=== PATIENT | male | born 2000 | race Two or more races ===

== ENCOUNTER 2022-03-28 13:04 | Emergency (ER) | payer MEDICAID, OTHER ==
[~2022-03-28] VITALS: Ht 167.6 cm; Wt 65.9 kg
[2022-03-28] MEDS ORDERED: FLUORESCEIN SOD OPTH TEST STRIP RIGHTEYE ONE (14:45)
[2022-03-28] MEDS ORDERED: TETRACAINE HCL 0.5% OPTH(EYE) SOLN 4ML RIGHTEYE ONE (14:45)
[2022-03-28] MEDS ORDERED: TOBR0.3S37 OP (15:02)
[2022-03-28 15:07] VITALS: BP 132/72
== END 2022-03-28 15:07 | disposition home or self-care (01) ==
LOC: ER 13:04
DX: S05.01XA Injury of conjunctiva and corneal abrasion without foreign body, right eye, initial encounter (principal); Z90.49 Acquired absence of other specified parts of digestive tract; X58.XXXA Exposure to other specified factors, initial encounter; Y93.89 Activity, other specified; Y92.89 Other specified places as the place of occurrence of the external cause; Y99.8 Other external cause status